=== PATIENT | female | born 1990 | race Hispanic/Latino ===

== ENCOUNTER 2017-03-08 15:53 | Emergency (ER) | payer OTHER ==
[~2017-03-08] VITALS: Ht 157.5 cm; Wt 78.6 kg
[2017-03-08] MEDS ORDERED: EPIPEN ADU0.3 MG/0.3 IM (18:25)
[2017-03-08 18:50] VITALS: BP 128/78
== END 2017-03-08 18:54 | disposition home or self-care (01) ==
LOC: EME 15:53
DX: T63.441A Toxic effect of venom of bees, accidental (unintentional), initial encounter (principal); T78.2XXA Anaphylactic shock, unspecified, initial encounter
CPT/HCPCS: 99281; 99285; J1200; J2930